=== PATIENT | male | born 1970 | race Caucasian/White ===

== ENCOUNTER 2017-06-10 15:18 | Emergency (ER) | payer MEDICAID, OTHER ==
[2017-06-10 15:18] VITALS: BMI 26.6
[2017-06-10 15:30] VITALS: BP 146/76; PULSE 73; RESP 16; TEMP 98.4; O2SAT 98
[2017-06-10] MEDS ORDERED: Naproxen 500 MG TAB PO ONE ×2 (15:49→16:36)
--- NOTE | 2017-06-10 17:09 | ED PDOC ---
HPI: Back Time Seen by Provider: 06/10/17 15:33 Chief Complaint (Nursing): Back Pain Chief Complaint (Provider): Back pain, ongoing History Per: Patient History/Exam Limitations: no limitations Onset/Duration Of Symptoms: Persistent Current Symptoms Are (Timing): Still Present Additional Complaint(s): Patient presents today for evaluation of a lower back pain, present for the past 3 years. Patient reports he was diagnosed with a spinal stenosis via MRI 3 years ago. He reports along with the back pain, he has bowel and bladder incontinence which is also ongoing for 3 years. He states his PCP is aware of the diagnosis as well as associated sptom; patient states he was instructed to get surgery and reports his neurosurgeon's office is requesting a new MRI prior to the surgery. Patient is also requesting naproxen and flexeril as he has depleted his supply. He denies any numbness, tingling, trauma, abdominal pain, saddle paresthesia. Patient offers no other complaints. Past Medical History Reviewed: Historical Data, Nursing Documentation, Vital Signs Vital Signs: Last Vital Signs Temp 98.4 F 06/10/17 15:25 Pulse 73 06/10/17 15:25 Resp 16 06/10/17 15:25 BP 146/76 06/10/17 15:25 Pulse Ox 98 06/10/17 15:25 - Medical History PMH: Back Problems Denies: Graves' Disease, Chronic Kidney Disease - Surgical History Surgical History: No Surg Hx - Family History Family History: States: No Known Family Hx, Unknown Family Hx - Immunization History Hx Tetanus Toxoid Vaccination: No Hx Influenza Vaccination: No Hx Pneumococcal Vaccination: No - Home Medications Home Medications: Ambulatory Orders Medication Instructions Recorded Cyclobenzaprine [Cyclobenzaprine 10 mg PO HS #10 tab 12/06/16 HCl] Ibuprofen [Motrin Tab] 800 mg PO Q6H 12/06/16 Meloxicam [Mobic] 15 mg PO DAILY 12/06/16 Naproxen [Naprosyn] 1 tab PO BID PRN #25 tab 12/06/16 Naproxen [Naprosyn] 500 mg PO ACBL 12/06/16 traMADol [Ultram] 50 mg PO TID 12/06/16 Cyclobenzaprine [Cyclobenzaprine 10 mg PO Q8 PRN #30 tab 06/10/17 HCl] Naproxen [Naprosyn] 500 mg PO BID PRN #30 tab 06/10/17 - Allergies Allergies/Adverse Reactions: Allergies Allergy/AdvReac Type Severity Reaction Status Date / Time No Known Allergies Allergy Verified 12/06/16 21:29 Review of Systems ROS Statement: Except As Marked, All Systems Reviewed And Found Negative Genitourinary Male: Positive for: Incontinence Musculoskeletal: Positive for: Back Pain Neurological: Negative for: Weakness, Numbness Physical Exam - Reviewed Nursing Documentation Reviewed: Yes Vital Signs Reviewed: Yes - Physical Exam Appears: Positive for: Non-toxic, No Acute Distress Neck: Positive for: Supple Cardiovascular/Chest: Positive for: Regular Rate, Rhythm Respiratory: Negative for: Respiratory Distress Gastrointestinal/Abdominal: Positive for: Soft. Negative for: Tenderness Back: Positive for: Normal Inspection, Muscle Spasm (noted to bilateral lower back). Negative for: L CVA Tenderness, R CVA Tenderness, Vertebral Tenderness Extremity: Positive for: Normal ROM Neurologic/Psych: Positive for: Alert, Oriented - ECG O2 Sat by Pulse Oximetry: 98 (RA) Pulse Ox Interpretation: Normal Medical Decision Making Medical Decision Making: Time: 1548 Impression: Chronic back pain Plan: -- Flexeril 10 mg PO -- Naproxen 500 mg PO -- Patient informed he needs to follow up as outpatient for the MRI scans; patient provided with referral and instructed to follow up without fail.= Scribe Attestation: Documented by Hortencia Polo acting as a scribe for ALVIN Owen Provider Attestation: All medical record entries made by the Scribe were at my direction and personally dictated by me. I have reviewed the chart and agree that the record accurately reflects my personal performance of the history, physical exam, medical decision making, and the department course for this patient. I have also personally directed, reviewed, and agree with the discharge instructions and disposition. Disposition - Clinical Impression Clinical Impression: Chronic back pain - Patient ED Disposition Is Patient to be Admitted: No - Disposition Referrals: [facility] [Outside] [facility] [Outside] Disposition: Routine/Home Disposition Time: 16:00 Condition: STABLE Prescriptions: Cyclobenzaprine [Cyclobenzaprine HCl] 10 mg PO Q8 PRN #30 tab PRN Reason: Muscle Spasm Naproxen [Naprosyn] 500 mg PO BID PRN #30 tab PRN Reason: Pain Instructions: Chronic Back Pain (ED) Forms: [facility] (Albanian) Print Language: AFGHAN
== END 2017-06-10 17:20 | disposition home or self-care (01) ==
LOC: H.ER 15:18
DX: M54.9 Dorsalgia, unspecified (principal); M48.00 Spinal stenosis, site unspecified; G89.29 Other chronic pain